=== PATIENT | female | born 1950 | race Caucasian/White ===

== ENCOUNTER 2017-05-23 01:25 | Inpatient (IN) | payer OTHER ==
[~2017-05-23] VITALS: Ht 163.8 cm; Wt 95.7 kg
[~2017-05-23 01:25] MED LIST: ASPIRIN EC325 M2 PO; COLACE100 M1 PO; DILAUDID2 M1 PO; LEXAPRO10 M1 PO; MIRALAX17 G1 PO; MORPHINE SULFAT15 M3 PO; OMEPRAZOLE20 M3 PO; PAROXETINE HCL20 M1 PO; SYNTHROID100 MCG PO; SYNTHROID50 MCG PO
[2017-05-23] MEDS ORDERED: MIRALAX17 G1 PO (13:33)
[2017-05-23] MEDS ORDERED: COLACE100 M1 PO (13:33)
[2017-05-23] MEDS ORDERED: PRILOSEC OTC20 M1 PO (13:33)
[2017-05-23] MEDS ORDERED: DILAUDID2 M1 PO (13:33)
[2017-05-23] MEDS ORDERED: ELIQUIS2.5 M1 PO (13:33)
--- NOTE | 2017-05-23 13:35 | Patient Discharge Instructions ---
Discharge Instructions General Discharge Information You were seen/treated for: Left hip unilateral primary osteoarthritis You had these procedures: Left total hip arthroplasty Watch for these problems: Increasing pain despite the use of pain medication Increasing redness, warmth or swelling Drainage of any type from incision Inability to bear weight on operative leg Persistent nausea and vomiting Fever greater than 101.5 degrees Do not soak the wound: Yes No bath, but you may shower: Yes Other wound care: Please keep wound clean and dry. No ointments or lotions of any type on or near incision at any time. No exceptions. Your dressing will be changed by your nurse on the second day after your surgery. Daily dry dressing changes are recommended each day thereafter. Do not soak your wound in a bath at any time until otherwise indicated by your surgeon. You may shower, please dry wound immediately after shower with a clean towel. Special Instructions: Constipation: Pain medication can cause constipation. Dr. Montaño has recommended that you take Colace and miralax each day. You may discontinue this medication if you develop loose stool or diarrhea. If you wish to continue this medication, it is available over the counter. If you are unable to move your bowels after several days, if you are unable to pass gas and are developing bloating, nausea, or vomiting as a result, please contact your doctor. Diet Continue normal diet: No Recommended Diet: Regular Activity Full Activity/No Limits: No Activity Self Limited: Yes Pounds, do NOT lift more than: 10 Acute Coronary Syndrome Inclusion Criteria At DC or during hospital stay patient has or had the following: ACS DIAGNOSIS No Discharge Core Measures Meds if any: Prescribed or Continued at Discharge Meds if any: NOT Prescribed or Continued at Discharge Congestive Heart Failure Inclusion Criteria At DC or during hospital stay patient has or had the following: CHF DIAGNOSIS No Discharge Core Measures Meds if any: Prescribed or Continued at Discharge Meds if any: NOT Prescribed or Continued at Discharge Cerebrovascular accident Inclusion Criteria At DC or during hospital stay patient has or had the following: CVA/TIA Diagnosis No Discharge Core Measures Meds if any: Prescribed or Continued at Discharge Meds if any: NOT Prescribed or Continued at Discharge Venous thromboembolism Inclusion Criteria VTE Diagnosis No VTE Type NONE VTE Confirmed by (Test) NONE Discharge Core Measures - Per Current guidelines, there needs to be overlap - treatment for the first 5 days of Warfarin therapy. - If discharged on Warfarin prior to 5 days of - overlap therapy, the patient will need to be - assessed for post discharge needs including - *Post discharge parental anticoagulation - *Warfarin and/or parental anticoagulation education - *Follow up date to check INR post discharge At least 5 days overlap therapy as Inpatient No Meds if any: Prescribed or Continued at Discharge Note: Overlap Therapy is Warfarin and Anticoagulant Meds if any: NOT Prescribed or Continued at Discharge
--- NOTE | 2017-05-23 13:39 | Admission Core Measures ---
Acute Coronary Syndrome (CM) ACS Core Measures Acute Coronary Syndrome Diagnosis No Congestive Heart Failure (NEW) CHF Core Measures Congestive Heart Failure Diagnosis No Cerebrovascular Accident (NEW) CVA Core Measures CVA/TIA Diagnosis No Venous Thromboembolism VTE Core Lisa (View Protocol) VTE Risk Factors Surgery No Mechanical VTE Prophylaxis d/t N/A MechProphylax Ordered No VTE Pharm Prophylaxis d/t NA PharmProphylax ordered Problem List As ranked by this Provider includes Assessment & Plan 1. Unilateral primary osteoarthritis, left hip HOME MEDS Home Med List Apixaban (Eliquis) 2.5 MG TABLET 1 TAB PO BID anticoagulation Docusate Sodium (Colace) 100 MG CAPSULE 1 CAP PO BID CONSITPATION Hydromorphone HCl (Dilaudid) 2 MG TABLET 1-2 TAB PO Q4-6 PRN PRN PAIN Levothyroxine Sodium (Synthroid) 50 MCG TABLET 1 TAB PO DAILY HYPOTHYROIDISM (Reported) Omeprazole Magnesium (Prilosec Otc) 20 MG TABLET.DR 1 TAB PO DAILY GI PROTECTION Paroxetine HCl 20 MG TABLET 1 TAB PO DAILY MOOD (Reported) Polyethylene Glycol 3350 (Miralax) 17 GRAM POWD.PACK 1 PAC PO DAILY CONSTIPATION
--- NOTE | 2017-05-23 13:42 | Surgical Discharge Summary ---
Visit Information Visit Dates Admission Date: 05/23/17 Discharge Date: 05/24/17 History of Present Illness Chief Complaint: Left hip pain related to unilateral primary osteoarthritis Medical History Neurological: Psychiatric: anxiety, depression Endocrine: hypothyroidism Cancer(s): melanoma History of MRSA: No History of VRE: No History of CDIFF: No Surgical History Pertinent Surgical History: GALLBLADDER REMOVED HAND/ANKLE SURGERY Psychosocial History What is Your Primary Language? Venezuelan Review of Systems: See H&P Hospital Course Course Attending Physician: Monroe Montaño MD Primary Care Physician: Barb Palencia MD Hospital Course: Patient was admitted to the hospital for an elective total joint replacement. The procedure was tolerated well and patient was transferred to a general surgical floor. Diet was advanced and tolerated, and the patient voided spontaneously. The patient was evaluated and treated by physical therapy. At the time of hospital discharge, the vital signs were stable, neurovascular status was intact, and pain was controlled with the use of oral pain medications. Allergies: Coded Allergies: adhesive (Mild, RASH 05/23/17) aspirin (Mild, HIVES/ITCH 05/23/17) Disposition Summary Disposition Principal Diagnosis: Unilateral primary osteoarthritis left hip Additional Diagnosis: None Discharge Disposition: home health services Discharge Instructions General Discharge Information Code Status: Full Code Patient's Diet: Regular, advance as tolerated Patient's Activity: WBAT Follow-Up Instructions/Appts: Follow up with Dr. Montaño in 6 weeks from date of surgery. Please call his office to arrange and/or confirm this appointment. Medications at Discharge Discharge Medications: Continue taking these medications: Paroxetine HCl (Paroxetine HCl) 20 MG TABLET 1 Tablet ORAL DAILY Comments: Last Taken: 05/24/17 Time: 9:30AM Levothyroxine Sodium (Synthroid) 50 MCG TABLET 1 Tablet ORAL DAILY Comments: Last Taken: 05/24/17 Time: 6AM Start taking the following new medications: Apixaban (Eliquis) 2.5 MG TABLET 1 Tablet ORAL TWICE DAILY Qty = 42 No Refills Comments: Last Taken: 05/24/17 Time: 9:30AM Docusate Sodium (Colace) 100 MG CAPSULE 1 Capsule ORAL TWICE DAILY Qty = 14 No Refills Instructions: DISCONTINUE USE IF YOU DEVELOP LOOSE STOOL OR DIARRHEA Comments: Last Taken: 05/24/17 Time: 9:30AM Polyethylene Glycol 3350 (Miralax) 17 GRAM POWD.PACK 1 Packet ORAL DAILY Qty = 7 No Refills Instructions: dissolve in water, DISCONTINUE USE IF YOU DEVELOP LOOSE STOOL OR DIARRHEA Comments: Last Taken: 05/24/17 Time: 9:30AM Omeprazole Magnesium (Prilosec Otc) 20 MG TABLET.DR 1 Tablet ORAL DAILY Qty = 30 No Refills Comments: Last Taken: 05/24/17 Time: 9:30AM Hydromorphone HCl (Dilaudid) 2 MG TABLET 1-2 Tablet ORAL EVERY 4-6 HOURS NEEDED as needed for PAIN Qty = 36 No Refills Comments: Last Taken: 05/24/17 Time: 9:30AM
--- NOTE | 2017-05-23 14:32 | RADIOLOGY REPORT ---
EXAMINATION: XR HIP, LEFT CLINICAL INFORMATION: COMPARISON: 02/21/2017 TECHNIQUE: Two views of the left hip. FINDINGS: 2 part prosthesis. Good visual result. No acute finding. IMPRESSION: 2 part prosthesis. Good visual result. No acute finding.
--- NOTE | 2017-05-23 15:54 | Operative Report ---
Operative/Inv Procedure Report Surgery Date: 05/23/17 Name of Procedure: Left total hip replacement Pre-Operative Diagnosis: Primary left hip DJD Post-Operative Diagnosis: Same Estimated Blood Loss: 300 Surgeon/Customer Sales Advisor: Danyel BROWN,Monroe Shahid Anesthesia: block Operative/Procedure Note Note: Description of Procedure: The patient was taken to the operating room and positively identified. After induction of spinal anesthesia and administration of appropriate pre-operative antibiotics, the patient was positioned supine on the operating room table and all bony prominences were well padded. After performing a surgical timeout, the left lower extremity was prepped and draped in the usual sterile fashion. A direct anterior approach was made to the left hip. The incision was carried sharply through superficial soft tissues to the level of the fascia. Meticulous hemostasis was maintained with Bovie electocautery. The fascia over the tensor fascia spencer muscle was opened sharply and the interval between the TFL and the sartorius was entered bluntly taking care to stay lateral to the lateral femoral cutaneous nerve. Retractors were placed around the femoral neck and the pericapsular fat was identified. The ascending branches of the lateral femoral circumflex vessels were identified and carefully coagulated. The pericapsular fat and anterior capsule were then resected. A napkin ring osteotomy was performed and the femoral head was removed without difficulty. Attention was then turned to the acetabulum. After appropriate placement of retractors, the acetabulum was exposed. Soft tissue was cleaned from the acetabular margin and notch. Overhanging osteophytes were removed and the teardrop was exposed. The acetabulum was then sequentially reamed to accept a 50 mm Fountain Tritanium hemispherical solid shell. This was impacted into place in the appropriate position and fitted with a 32 mm Trident X3 zero degree polyethylene insert. Attention was then turned to the femur. After performing the appropriate ligament releases, the proximal femur was exposed. It was then sequentially broached to accept a size #4 Fountain Accolade 2 stem. This was trialed for leg length and stability. The trial component was removed and the final component was impacted into place. The trunnion was carefully cleaned and fit with a 32 mm, +0 Biolox delta ceramic femoral head. The hip was reduced and put through a full range of motion and found to be stable. The articular space was then irrigated with sterile saline. The periarticular soft tissues were infilitrated with Marcaine. The fascial layer was closed with interrupted #1 vicryl suture and the skin was re-approximated with interrupted 2 -0 vicryl. The skin was closed with a running 3-0 V-Lock suture. Steri-strips and a sterile dressing were applied. The patient was awakened and taken to the recovery room in satisfactory condition.
[2017-05-23 16:00] VITALS: BP 153/88
--- NOTE | 2017-05-23 16:43 | PN- Orthopedic ---
Subjective Subjective: POC feeling well, walked with pt- likely home tomorrow. mild hip pain now. hungry. no n/v/cp/sob. +void Objective Vital Signs and I&Os see emr Physical Exam: geb- nad card-s1s2 rrr pulm-ctab abd- soft nt ext- l hip dressed-cdi, nontender. calves soft nt bl, alps on. +dorsi/ plantarflexion bl. feet warm, palp dp. gross sensation intact bl Assessment/Plan Assessment/Plan A- POD0 sp L FRACISCO, stable P- reg diet as tolerated prn apin meds hl in am i&os home meds wbat, pt, oob dc planning - hhs likely tomorrow Core Measures Venous Thromboembolism VTE Risk Factors Surgery No Mechanical VTE Prophylaxis d/t N/A MechProphylax Ordered No VTE Pharm Prophylaxis d/t NA PharmProphylax ordered
[2017-05-23 19:00] VITALS: BP 127/75
[2017-05-23 21:00] VITALS: BP 130/74
[2017-05-24] VITALS: BP 112/66
[2017-05-24 04:16] VITALS: BP 141/79
[2017-05-24 07:42] VITALS: BP 121/69
--- NOTE | 2017-05-24 08:24 | PN- Orthopedic ---
Subjective Subjective: Feels well, offers no other complaints. Tolerating diet. Voiding. Cleared by PT for home PT. Eager to go home. Objective Vital Signs and I&Os Vital Signs Date Time Temp Pulse Resp B/P B/P Pulse O2 O2 Flow FiO2 Mean Ox Delivery Rate 05/24 0742 97.3 60 20 121/69 98 Room Air 05/24 0416 98.1 62 18 141/79 92 Room Air 03/ 0000 97.7 61 18 112/66 95 Room Air 03/ 2100 97.4 70 20 130/74 96 Room Air / 1900 97.4 59 20 127/75 96 / 1600 97.2 62 20 153/88 98 Room Air Intake & Output 05/24 1600 05/24 0800 / 0000 / 1600 05/23 0800 05/23 0000 Intake Total 1005 480 Output Total 400 Balance 1005 80 Intake, IV 525 Intake, Oral 480 480 Output, Urine 400 Patient 211 lb 200 lb Weight Weight Bed scale Measurement Method Physical Exam: Gen - NAD card -S1S2, RRR Lungs - CTAB Abd - soft, nt/nd Ext- L hip dressing c/d/i, +dorsi/plantarflexion B/L, nvi, no edema or calf tenderness alps in place Current Medications: Current Medications Sig/Alexandra Start time Last Medication Dose Route Stop Time Status Admin Acetaminophen 1,000 MG Q6 / 1800 AC 05/24 IV 05/24 1201 0600 Acetaminophen 975 MG ONCE 05/23 0000 DC PO 05/23 2359 Apixaban 2.5 MG BID 05/24 1000 AC 05/24 PO 0930 Cefazolin Sodium 2 GM IQ8 05/23 1600 DC 05/23 N/A 1 UNIT IV 05/24 0029 2351 Cefazolin Sodium 2,000 MG ONCE 05/23 0000 DC IV 05/23 2359 Dextrose/Sodium 1,000 ML .[id number] 05/23 1715 DC 05/24 Chloride IV 0338 Docusate Sodium 100 MG BID 05/23 2200 AC 05/24 PO 0930 Hydromorphone HCl 2 MG Q4P PRN 05/23 1715 AC 05/24 PO 0931 Hydromorphone HCl 4 MG Q4P PRN 05/23 1715 AC PO Levothyroxine Sodium 0.05 MG DAILY AC 05/24 0700 DC PO Levothyroxine Sodium 0.05 MG DAILY AC 05/24 0700 AC 05/24 PO 0601 Morphine Sulfate 2 MG Q2P PRN 05/23 171 AC 05/23 IV 1901 Omeprazole 40 MG DAILY AC 05/24 0700 AC 05/24 PO 0600 Ondansetron HCl 4 MG Q6P PRN 05/23 171 AC IV Oxycodone HCl 10 MG ONCE 05/23 0000 DC PO 05/23 2359 Paroxetine HCl 20 MG DAILY 05/24 1000 DC PO Paroxetine HCl 20 MG DAILY 05/24 1000 AC 05/24 PO 0930 Polyethylene Glycol 17 GM DAILY 05/24 1000 AC 05/24 PO 0930 Promethazine HCl 12.5 MG Q6P PRN 05/23 171 AC IV 05/30 1314 Results Last 48 Hours of Labs: Laboratory Tests 05/24 0755 Chemistry Sodium (137 - 145 mmol/L) 140 Potassium (3.5 - 5.1 mmol/L) 3.8 Chloride (98 - 107 mmol/L) 106 Carbon Dioxide (22 - 30 mmol/L) 28 Anion Gap (5 - 16) 6 BUN (7 - 17 mg/dL) 13 Creatinine (0.5 - 1.0 mg/dL) 0.7 Estimated GFR (>60 ml/min) > 60 BUN/Creatinine Ratio (7 - 25 %) 18.6 Hematology CBC w Diff NO MAN DIFF REQ WBC (4.8 - 10.8 /CUMM) 7.2 RBC (4.20 - 5.40 /CUMM) 3.68 L Hgb (12.0 - 16.0 G/DL) 10.4 L Hct (37 - 47 %) 31.6 L MCV (81.0 - 99.0 FL) 85.9 MCH (27.0 - 31.0 PG) 28.4 MCHC (33.0 - 37.0 G/DL) 33.1 RDW (11.5 - 14.5 %) 13.9 Plt Count (130 - 400 /CUMM) 166 MPV (7.4 - 10.4 FL) 8.9 Gran % (42.2 - 75.2 %) 76.1 H Lymphocytes % (20.5 - 51.1 %) 15.1 L Monocytes % (1.7 - 9.3 %) 8.5 Eosinophils % (0 - 5 %) 0.2 Basophils % (0.0 - 2.0 %) 0.1 Absolute Granulocytes (1.4 - 6.5 /CUMM) 5.5 Absolute Lymphocytes (1.2 - 3.4 /CUMM) 1.1 L Absolute Monocytes (0.10 - 0.60 /CUMM) 0.6 Absolute Eosinophils (0.0 - 0.7 /CUMM) 0 Absolute Basophils (0.0 - 0.2 /CUMM) 0 Assessment/Plan Assessment/Plan 66 F POD 0 s/p L FRACISCO, stable for d/c Reg diet, d/c ivf Pain meds prn Home meds on board GI ppx on board DVT ppx - eliquis bid Bowel regimen on board Cont alps OOB, WBAT w/ PT D/c today with [facility] Will d/w Dr. Montaño Core Measures Venous Thromboembolism VTE Risk Factors Surgery No Mechanical VTE Prophylaxis d/t N/A MechProphylax Ordered No VTE Pharm Prophylaxis d/t NA PharmProphylax ordered
[2017-05-24 08:42] LABS: ABSOLUTE BASOPHIL COUNT 0 /CUMM (0.0-0.2); ABSOLUTE EOSINOPHIL COUNT 0 /CUMM (0.0-0.7); ABSOLUTE GRANULOCYTE CT 5.5 /CUMM (1.4-6.5); ABSOLUTE LYMPH COUNT 1.1 /CUMM (1.2-3.4); ABSOLUTE MONOCYTE COUNT 0.6 /CUMM (0.10-0.60); BASOPHIL % 0.1 % (0.0-2.0); EOSINOPHIL % 0.2 % (0-5); GRANULOCYTE % 76.1 % (42.2-75.2); HEMATOCRIT 31.6 % (37-47); MEAN CORPUSCULAR HGB 28.4 PG (27.0-31.0); MEAN CORPUSCULAR HGB CONC 33.1 G/DL (33.0-37.0); MEAN CORPUSCULAR VOLUME 85.9 FL (81.0-99.0); MEAN PLATELET VOLUME 8.9 FL (7.4-10.4); PLATELET COUNT 166 /CUMM (130-400); RBC DISTRIBUTION WIDTH 13.9 % (11.5-14.5); RED BLOOD CELL CT 3.68 /CUMM (4.20-5.40); WHITE BLOOD CELL COUNT 7.2 /CUMM (4.8-10.8)
== END 2017-05-24 11:37 | disposition home health service (06) | DRG 470 ==
LOC: 2NA 01:25 → SDA 01:25 → ENRESERV 12:46 → ENTRNSPT 15:14 → EDTRNSPTSTS 15:37 → EDTRNSPT 15:37 → 2NA 15:45 → CMPTRNSPT 15:55 → ENPENDDIS 05-24 10:26 → ENTRNSPT 05-24 11:08 → EDTRNSPT 05-24 11:25 → EDTRNSPTSTS 05-24 11:25 → 2NA 05-24 11:37 → CMPTRNSPT 05-24 11:42
PROVIDERS: Nurse Practitioner
PROC: 0SRB04Z Replacement of Left Hip Joint with Ceramic on Polyethylene Synthetic Substitute, Open Approach (ICD-10-PCS; principal; 2017-05-23)
DX: M16.12 Unilateral primary osteoarthritis, left hip (principal); E66.9 Obesity, unspecified; E03.9 Hypothyroidism, unspecified; F41.9 Anxiety disorder, unspecified; F32.9 Major depressive disorder, single episode, unspecified; Z88.6 Allergy status to analgesic agent; Z91.048 Other nonmedicinal substance allergy status; Z68.33 Body mass index [BMI] 33.0-33.9, adult; Z85.820 Personal history of malignant melanoma of skin; Z90.49 Acquired absence of other specified parts of digestive tract; Z87.891 Personal history of nicotine dependence; N76.0 Acute vaginitis
CPT/HCPCS: 2NASP; 36592; 73502-LT; 82436; 97116-GO; 97161-GP; 97530-GO; J0131; J0690; J0735; J2550; J3490; J7042